=== PATIENT | female | born 1955 ===

== ENCOUNTER 2022-06-21 07:34 | Day surgery (SDC) | payer OTHER ==
[~2022-06-21] VITALS: Ht 160 cm; Wt 104.3 kg
[~2022-06-21 07:34] MED LIST: COZAAR100 MG PO; GLUMETZA500 MG PO; PEPCID AC20 MG PO; PROTONIX40 MG PO
== END 2022-06-21 11:15 | disposition home or self-care (01) ==
LOC: CIR.AMB 07:34
PROVIDERS: ATTEND Surgery
DX: L72.0 Epidermal cyst (principal); R22.2 Localized swelling, mass and lump, trunk; Z20.822 Contact with and (suspected) exposure to COVID-19; I10 Essential (primary) hypertension